=== PATIENT | female | born 1995 | race Two or more races ===

== ENCOUNTER 2024-07-25 09:40 | Emergency (ER) | payer OTHER ==
[~2024-07-25] VITALS: Ht 170.2 cm; Wt 87.5 kg
[~2024-07-25 09:40] MED LIST: PRENA1 CHEW TA1.4 MG PO; ULTRACET PO
[2024-07-25] MEDS ORDERED: ONDANSETRON HCL 2 MG/ML VIAL IV ONE (10:30)
[2024-07-25 11:12] LABS: HEMATOCRIT 34.6 % (36.0-45.00); HEMOGLOBIN 11.7 g/dL (12.0-15.00); MEAN CELL VOLUME 85.8 fL (80.00-100.00); MEAN CORPUSCULAR HGB CONC 33.9 g/dl (32.0-36.0); PLATELET COUNT 174 K/uL (150-450); RED BLOOD COUNT 4.04 M/uL (4.00-6.00); RED CELL DISTRIBUTION WIDTH 13.6 % (11.5-14.5)
[2024-07-25 14:31] LABS: PH,URINE 6.5 (5.0-8.0); URINE APPEARANCE Clear; URINE BILIRRUBIN Negative (NEGATIVE); URINE BLOOD Negative; URINE COLOR Yellow; URINE GLUCOSE Negative (NEGATIVE); URINE LEUKOCYTE Negative; URINE NITRATE Negative; URINE PROTEIN Negative (NEGATIVE)
[2024-07-25 14:35] LABS: URINE BACTERIA 2018.4 uL (0.0-1933); URINE EPITHELIAL CELLS 14.3 uL (0.0-38.8); URINE WBC 15.9 uL (0.0-23.2)
[2024-07-25 14:45] LABS: URINE KETONE 80 (NEGATIVE); URINE RBC 1.2 uL (0.0-20.8)
[2024-07-25] MEDS ORDERED: ZOFRAN8 MG PO (15:07)
== END 2024-07-25 15:14 | disposition home or self-care (01) ==
LOC: ER 09:40
PROVIDERS: General Practice
DX: O21.0 Mild hyperemesis gravidarum (principal); Z3A.15 15 weeks gestation of pregnancy; Z88.6 Allergy status to analgesic agent; R10.2 Pelvic and perineal pain

== ENCOUNTER → 2024-09-14 08:45 | Outpatient (CLI) | payer OTHER ==
[~2024-09-14 08:45] MED LIST changes: +ZOFRAN8 MG PO
== END | disposition home or self-care (01) ==
LOC: PRENATAL 08:45
PROVIDERS: ATTEND Obstetrics & Gynecology Maternal & Fetal Medicine
DX: O35.9XX0 Maternal care for (suspected) fetal abnormality and damage, unspecified, not applicable or unspecified (principal); O35.3XX0 Maternal care for (suspected) damage to fetus from viral disease in mother, not applicable or unspecified; O44.02 Complete placenta previa NOS or without hemorrhage, second trimester; Z3A.22 22 weeks gestation of pregnancy

== ENCOUNTER 2024-11-19 08:44 | Outpatient (CLI) | payer OTHER | END 2024-11-19 08:45 | disposition home or self-care (01) | LOC: PRENATAL 08:44 | PROVIDERS: ATTEND Obstetrics & Gynecology Maternal & Fetal Medicine | DX: O26.849 Uterine size-date discrepancy, unspecified trimester (principal); O36.8199 Decreased fetal movements, unspecified trimester, other fetus; Z3A.32 32 weeks gestation of pregnancy ==

== ENCOUNTER 2024-12-22 03:02 | Inpatient (IN) | payer OTHER ==
[~2024-12-22] VITALS: Ht 170.2 cm; Wt 94.3 kg
[2024-12-22] VITALS (7 sets, daily range): BP systolic 90–111; BP diastolic 54–65
[~2024-12-22 03:02] MED LIST changes: +PR NATAL 400 C1 EACH
[2024-12-22] MEDS ORDERED: AMPICILLIN SODIUM 2,000 MG VIAL IV ONE (03:15)
[2024-12-22] MEDS ORDERED: RINGERS SOLUTION,LACTATED 1,000 ML IV SCH (03:15)
[2024-12-22 03:59] LABS: HEMATOCRIT 32.8 % (36.0-45.00); HEMOGLOBIN 11.1 g/dL (12.0-15.00); MEAN CELL VOLUME 83.7 fL (80.00-100.00); MEAN CORPUSCULAR HEMOGLOBIN 28.2 pg (27.00-32.0); MEAN CORPUSCULAR HGB CONC 33.7 g/dl (32.0-36.0); PLATELET COUNT 170 K/uL (150-450); RED BLOOD COUNT 3.92 M/uL (4.00-6.00); RED CELL DISTRIBUTION WIDTH 14.1 % (11.5-14.5)
[2024-12-22 04:15] LABS: URINE APPEARANCE Clear; URINE BILIRRUBIN Negative (NEGATIVE); URINE BLOOD NHT; URINE COLOR Yellow; URINE GLUCOSE Negative (NEGATIVE); URINE LEUKOCYTE Small; URINE NITRATE Negative; URINE PROTEIN Trace (NEGATIVE)
[2024-12-22 04:16] LABS: URINE BACTERIA 935.1 uL (0.0-1933); URINE EPITHELIAL CELLS 34.6 uL (0.0-38.8); URINE RBC 36.8 uL (0.0-20.8); URINE WBC 100.5 uL (0.0-23.2)
[2024-12-22 04:17] LABS: URINE CAST 0.14 uL (0.0-1.40); URINE KETONE >=160 (NEGATIVE)
[2024-12-22 04:23] LABS: INR < 0.93; PARTIAL THROMBOPLASTIN TIME 23.6 SECONDS (22.0-34.0)
[2024-12-22 04:27] LABS: ALBUMIN 2.9 gm/dL (3.4-5.0); BILIRUBIN TOTAL 0.63 mg/dL (0.3-1.2); CALCIUM 9.1 mg/dL (8.5-10.1); CREATININE SERUM 0.45 mg/dL (0.55-1.02); GFR 164.73; GLOBULINA 3.4 G/DL (2.4-3.5); POTASSIUM 4.11 mEq/L (3.5-5.1); TOTAL PROTEIN 6.3 gm/dL (6.4-8.2)
[2024-12-22] MEDS ORDERED: OXYTOCIN 20 UNITS/500ML RL PIGGYBAG IV ONE (06:27)
[2024-12-22] MEDS ORDERED: MORPHINE SULFATE 4 MG/ML CARTRIDGE IV ONE (07:15)
[2024-12-22] MEDS ORDERED: OXYTOCIN 500 ML IV SCH (07:15)
[2024-12-22] MEDS ORDERED: AMPICILLIN SODIUM 1,000 MG VIAL IV SCH (08:00)
[2024-12-22] MEDS ORDERED: OXYTOCIN 20 UNITS/1000ML RL PIGGYBAG IV ONE (08:58)
[2024-12-22] MEDS ORDERED: ERYTHROMYCIN BASE OPHT 1GM EACH TUBE OP ONE ×2 (08:58→10:45)
[2024-12-22] MEDS ORDERED: LIDOCAINE HCL 1% 10ML VIAL ONE ×2 (08:59→09:31)
[2024-12-22] MEDS ORDERED: CHLORHEXIDINE GLUCONATE 120 ML BOTTLE TOP ONE (08:59)
[2024-12-22] MEDS ORDERED: NALOXONE HCL 0.4 MG/ML AMPUL ONE (09:12)
[2024-12-22] MEDS ORDERED: OXYTOCIN 1,000 ML IV SCH (10:00)
[2024-12-22] MEDS ORDERED: ACETAMINOPHEN 500 MG GEL..CAP PO PRN (10:00)
[2024-12-22] MEDS ORDERED: CHLORHEXIDINE GLUCONATE 120 ML BOTTLE TOP SCH (10:00)
[2024-12-22] MEDS ORDERED: LIDOCAINE HCL 1% 10ML VIAL IJ ONE (10:30)
[2024-12-22] MEDS ORDERED: NALOXONE HCL 0.4 MG/ML AMPUL IM ONE (10:30)
[2024-12-22] MEDS ORDERED: BENZOCAINE/MENTHOL 90 ML BOTTLE TOP SCH (12:00)
[2024-12-22] MEDS ORDERED: DOCUSATE SODIUM 100MG CAP PO SCH (17:00)
[2024-12-22] MEDS ORDERED: SIMETHICONE 125 MG CAPSULE PO SCH (18:00)
[2024-12-23] VITALS: BP 104/65
[2024-12-23 04:00] VITALS: BP 92/58
[2024-12-23 09:20] VITALS: BP 100/63
[2024-12-23 16:00] VITALS: BP 110/70
[2024-12-24 00:25] VITALS: BP 91/60
[2024-12-24 08:29] VITALS: BP 110/55
== END 2024-12-24 13:54 | disposition home or self-care (01) | DRG 805 ==
LOC: OB/GYN 03:02 → LDR 03:02 → OB/GYN 10:39
PROVIDERS: ADMIT Obstetrics & Gynecology; ATTEND Obstetrics & Gynecology
PROC: 10E0XZZ Delivery of Products of Conception, External Approach (ICD-10-PCS; principal; 2024-12-22)
PROC: 0UQMXZZ Repair Vulva, External Approach (ICD-10-PCS; 2024-12-22)
PROC: 4A1HXCZ Monitoring of Products of Conception, Cardiac Rate, External Approach (ICD-10-PCS; 2024-12-22)
DX: O70.0 First degree perineal laceration during delivery (principal); O60.14X0 Preterm labor third trimester with preterm delivery third trimester, not applicable or unspecified; Z37.0 Single live birth; Z3A.36 36 weeks gestation of pregnancy